=== PATIENT | male | born 1980 | race Caucasian/White ===

== ENCOUNTER 2023-03-11 14:44 | Inpatient (IN) | payer BC ==
--- OUTSIDE RECORDS SUMMARY | 2023-03-11 14:47 | XMS REPORT | Continuity of Care Document ---
:1980 [facility] t Address [address] [place] [address] [address] [place] [address] Care Team Providers Name Role Phone Unavailable Unavailable Unavailable Payers Payer Name Policy Type Policy Number Effective Date Expiration Date S ource Problems Condition Condition Condition Status Onset Resolution Last Treating Co mments Source Name Details Category Date Date Treatment Clinician Date Other Other Problem Active Common chronic chronic Spirit pain pain - [facility] Low back Low back Problem Active Commo n pain pain [facility] Erectile Erectile Problem Active Commo n dysfunctio dysfunctio Sp lula n, n, - [facility] erectile d erectile Asya kes dysfunctio dysfunctio Me dical n type n type Center Fatigue, Fatigue, Problem Active Commo n unspecifie unspecifie Sp lula d type d type - [facility] Alcohol Alcohol Problem Active Common abuse abuse Spirit - [facility] Cigarette Cigarette Problem Active Com mon nicotine nicotine [facility] dependence dependence - [facility] without without St complicati complicati [facility] Allergies, Adverse Reactions, Alerts This patient has no known allergies or adverse reactions. Medications Ordered Filled Start Stop Current Ordering Indication Dosage Frequency Signature Comments Components Source Medication Medication Date Date Medication? Clinician (SIG) Name Name Etodolac Etodolac 2019- No Kleber 1 capsule Common 03-06 [place] with food Spirit 00:00: 00:00 - [facility] 00 :00 [facility] Methocarbam Methocarbam 2018- 2019- No Kleber 1 tablet Common ol ol -04-05 [place] [facility] 00:00: 00:00 - [facility] 00 :00 [facility] Procedures This patient has no known procedures. Encounters Start End Encounter Admission Attending Care Care Encounter Source Date/Time Date/Time Type Type Clinicians Facility Department ID 2019-08-29 2019-08-29 Outpatient Goranevelyn Julissat [id number] Common 10:20:00 10:20:00 [facility] [address] [facility] 2019-08-28 2019-08-28 Outpatient Julissa [place] [id number] Common 09:40:00 09:40:00 [facility] Spir it [facility] 2019-03-31 2019-03-31 Outpatient Julissa [place] [id number] Common 15:00:00 15:00:00 [facility] Results Test Description Test Time Test Comments Results Result [facility] e Comments - MRI L-SPINE W/O 2019-04-13 Patient Name: CONT 10:22:00 HOLLY RG Unit No: [id number] EXAMS: CPT CODE: [id number] MRI L-SPINE W/O CONT 51047 DIAGNOSIS: 1. At L1-2 there is no evidence for disc bulge or herniation, bony canal or foraminal stenosis. 2. At L2-3 there is no evidence for disc bulge or herniation, bony canal or foraminal stenosis. 3. At L3-4 there is 5 mm of extruded left posterior lateral and foraminal disc herniation compressing the thecal sac and the left L4 nerve root. Mild narrowing of the central canal is seen with facet and ligamentum flavum hypertrophic and degenerative change. Moderate left foraminal narrowing is present with mild right-sided stenosis. 4. At L4-5 there is no evidence for disc bulge or herniation. Moderate bilateral foraminal narrowing is present and there is mild narrowing of the central canal with facet and ligamentum flavum hypertrophic and degenerative change. 5. At L5-S1 there is a mild retrolisthesis and associated disc bulging with mild foraminal narrowing. No canal stenosis is seen. COMMENT: COMPARISON: No prior exams available. Scans were performed in the sagittal and axial planes utilizing T1, T2 and inversion recovery images. Signal intensities in the lumbar vertebra are within normal limits. There is mild desiccation of the disks from L3 to S1. Disc configurations are as described. Spondylitic changes are as noted. The conus is in the expected location. The description these findings assumes a normal count of 5 lumbar type vertebra. at 1022 Reported and signed by: Adriano Galloway MD CC: Renetta Schultz M.D. Technologist: SRIDHAR RUIZ RT(R) Transcribed D/ (1022) Asif.SAAD [facility] NAME: HOLLY RG [address] [facility] PHYS: John Jennings MD : 1980 AGE: 39 SEX: M [place] [address] LOC: Y.MRI PHONE #: [phone] EXAM DATE: 04/11/2019 STATUS: DEP CLI FAX #: [phone] RAD #: D/C DT PAGE 1 Signed Report Patient Name: HOLLY RG Unit No: [id number] EXAMS: CPT CODE: [id number] MRI L-SPINE W/O CONT 50722 (Continued) Orig Print D/T: S: 04/13/2019 (1025) [facility] NAME: HOLLY RG [address] [facility] PHYS: John Jennings MD : 1980 AGE: 39 SEX: M [place] [address] LOC: Y.MRI PHONE #: [phone] EXAM DATE: 04/11/2019 STATUS: DEP CLI FAX #: [phone] RAD #: D/C DT PAGE 2 Signed Report
--- NOTE | 2023-03-11 14:52 | P.HP ---
Certification for Inpatient Patient admitted to: Inpatient With expected LOS: >2 Midnights Practitioner: I am a practitioner with admitting privileges, knowledge of patient current condition, hospital course, and medical plan of care. Services: Services provided to patient in accordance with Admission requirements found in Title 42 Section 412.3 of the Code of Federal Regulations Patient History Date of Service: 03/11/23 Reason for admission: microperforation, acute sigmoid diverticulitis History of Present Illness: 42yo M, no PMH direct admission from [place] [facility] due to contained microperforation secondary to acute sigmoid diverticulitis. Patient was in usual state of health up until day before admission @2am, began having LLQ abdominal pain. Pain did not radiate. Nothing in particular alleviated the pain. Worsened with movement. Pain persisted and he began feeling chills, so presented to [place] [facility]. Denies nausea/vomiting, no diarrhea, no rash, no urinary complaints, no SOB, no chest pain. Never had this before. No medications, no sick contacts. Reportedly had leukocytosis of 16k at [place], lactate <2, vitals stable. Currently, patient reports 4-6/10 pain in LLQ, no nausea. Allergies No Known Allergies Allergy (Unverified 03/11/23 15:21) Home Medications: NK [No Home Meds] 03/11/23 - Past Medical/Surgical History Diabetic: No Past Medical History: Patient denies medical history Past Surgical History: Patient denies surgical history Psychosocial/ Personal History: works, , kids - Family History Family History: Reviewed- Non-Contributory (denies any family history at this time) - Social History Smoking Status: Current every day smoker (vapes) Alcohol use: Yes Place of Residence: Home Review of Systems 10-point ROS is otherwise unremarkable Physical Examination - Physical Exam General: Alert, Mild distress (uncomfortable appearing) HEENT: EOMI, Sclerae nonicteric Neck: Supple, No LAD Respiratory: Clear to auscultation bilaterally, Normal air movement Cardiovascular: No edema, Regular rate/rhythm, No murmurs Gastrointestinal: Soft and benign, Tenderness (moderate-severe in LLQ, no rigidity) Musculoskeletal: No contractures, No tenderness Integumentary: No rashes, No significant lesion Neurological: Normal speech, Normal affect Assessment and Plan - Advance Directives Does patient have a Living Will: No Does patient have a Durable POA for Healthcare: No Physician Review Additional Text: Problem List Acute sigmoid diverticulitis with contained microperforation Nicotine dependence sepsis without severe sepsis/shock on presentation to [place] - leukocytosis, tachycardia CT: microperf, sigmoid diverticulitis NPO, IVF possibly advance tomorrow cipro/flagyl given at [place], continue here pain medication antiemetics Dr. Boss consulted patient will need colonoscopy in 6-8 weeks serial abdominal exams counselled on smoking cessation, risk of impaired healing nicotine patch ordered VTE: SCDs Code: full Dispo: home, ~2-3 days Time Spent Managing Pts Care (In Minutes): 75
[2023-03-11 15:26] VITALS: BMI 19.8
[2023-03-11] MEDS ORDERED: MORPHINE 2 MG/ML SYR IV PRN (16:10)
[2023-03-11] MEDS ORDERED: ONDANSETRON 4 MG/2 ML VIAL IV PRN (16:10)
[2023-03-11] MEDS: METRONIDAZOLE 500mg IVPB 500 MG/100 ML BAG IV SCH (16:22)
[2023-03-11] MEDS: D5.45NS W/KCL 20MEQ 1,000 ML IV SCH (16:44)
[2023-03-11] MEDS: NICOTINE 14 MG/PAT TD SCH (16:44)
[2023-03-11] MEDS ORDERED: CIPROFLOXACIN 400mg IV 400 MG/200 ML BAG IV SCH (17:00)
[2023-03-11] MEDS: CIPROFLOXACIN 400mg IV 400 MG/200 ML BAG IV SCH (20:01)
[2023-03-12] MEDS: METRONIDAZOLE 500mg IVPB 500 MG/100 ML BAG IV SCH ×3 (00:18→16:25)
[2023-03-12] MEDS: D5.45NS W/KCL 20MEQ 1,000 ML IV SCH ×4 (00:18→23:00)
[2023-03-12] MEDS ORDERED: ACETAMINOPHEN 325 MG TABLET PO ONE (05:19)
[2023-03-12 06:07] LABS: Absolute Lymphocytes (CBC) 1.6 K/uL (0.7-4.9); Hematocrit 37.1 % (39.6-49.0); Lymphocytes % 11.9 % (15.3-44.8); MCV 92.5 fL (80-100); MPV 7.7 fL (7.6-11.3); RBC Red Blood Cell Count 4.01 M/uL (4.33-5.43)
[2023-03-12 06:22] LABS: Albumin 3.2 g/dL (3.4-5.0); Bilirubin Total 0.9 mg/dL (0.2-1.0); Magnesium 2.2 mg/dL (1.6-2.4); Potassium 3.8 mEq/L (3.5-5.1); Protein, Total 6.6 g/dL (6.4-8.2)
--- NOTE | 2023-03-12 06:56 | P.PN ---
Date of Service: 03/12/23 Subjective: feeling much better today no nausea/vomiting; no abdominal pain at this time no new / worsening problems afebrile ROS: 10 point ROS as noted above, otherwise negative Physical Exam: GEN: Alert, oriented, NAD HEENT: Normal conjunctiva, sclera anicteric CV: Regular rate and rhythm, no edema Pulm: Nonlabored respirations on room air ABD: Soft, mild tenderness in LLQ, no rigidity MSK: No joint tenderness Neuro: Normal speech, normal affect vitals reviewed Problem List: Acute sigmoid diverticulitis with contained microperforation Nicotine dependence Acute sigmoid diverticulitis with contained microperforation sepsis without severe sepsis/shock on presentation to [place] - leukocytosis, tachycardia CT: microperf, sigmoid diverticulitis IVF advanced to clear liquids 03/12 advance as tolerated cipro/flagyl given at [place], continue here pain medication antiemetics Dr. Boss consulted patient will need colonoscopy in 6-8 weeks serial abdominal exams Nicotine dependence counselled on smoking cessation, risk of impaired healing nicotine patch ordered VTE: SCDs Code: full Dispo: home, ~1-2 days
[2023-03-12] MEDS: NICOTINE 14 MG/PAT TD SCH (07:58)
[2023-03-12] MEDS: CIPROFLOXACIN 400mg IV 400 MG/200 ML BAG IV SCH ×2 (09:13→20:44)
[2023-03-12] MEDS ORDERED: ACETAMINOPHEN 500 MG TAB PO PRN (11:56)
--- NOTE | 2023-03-12 14:04 | P.CNS ---
Date of Consult: 03/12/23 PC: I was asked to see this 42-year-old male in regards to his lower abdominal pain. HPC: Patient presented to the emergency room with severe left lower quadrant abdominal pain for diagnosis and treatment. On work-up was found to have acute diverticulitis. PSHx: Negative PMHx: Negative Social Hx: No known allergies Sys R: No cough, wheeze, shortness of breath. No chest pain or palpitations. Has not had any alteration in diet or weight. Has not had any rectal bleeding or trouble with bowel movements. This is his first episode apparently. O/E: Awake alert vital signs are stable HEENT: Negative Chest: Chest movement equal bilaterally Abd: Minimal lower abdominal discomfort [facility]: Intact Data: CT shows diverticulitis with small bowel Perforation, no evidence of gross contamination Impression: Diverticulitis with microperforation Plan: The patient has been on antibiotics, is responding well. His pain is mini mal today. He is on a full liquid diet. Recommend another 24 hours of antibiotics, and if pain remains at the same level, may be discharged and followed as outpatient. Once again we emphasized to him he does need a colonoscopy within the next 4 to 6 weeks. On discharge he is welcome to follow- up in my office should he have any questions or problems, but otherwise may follow-up with his own private physician.
[2023-03-13] MEDS: METRONIDAZOLE 500mg IVPB 500 MG/100 ML BAG IV SCH ×3 (00:44→16:34)
[2023-03-13 01:50] VITALS: O2SAT 96
[2023-03-13] MEDS: NICOTINE 14 MG/PAT TD SCH (07:59)
[2023-03-13] MEDS: CIPROFLOXACIN 400mg IV 400 MG/200 ML BAG IV SCH (09:05)
[2023-03-13] MEDS: D5.45NS W/KCL 20MEQ 1,000 ML IV SCH (10:32)
[2023-03-13 17:26] VITALS: BP 95/51; TEMP 98.2
== END 2023-03-13 18:00 | disposition home or self-care (01) | DRG 872 ==
LOC: 4TH 14:44
PROVIDERS: ADMIT Hospitalist; ATTEND Hospitalist
DX: A41.9 Sepsis, unspecified organism (principal); K57.20 Diverticulitis of large intestine with perforation and abscess without bleeding; F17.290 Nicotine dependence, other tobacco product, uncomplicated; Z71.6 Tobacco abuse counseling
CPT/HCPCS: 36415; 80053; 83735; 85025; 94760; J0744; J2405

== ENCOUNTER 2023-04-02 09:28 | Emergency (ER) | payer BC ==
--- OUTSIDE RECORDS SUMMARY | 2023-04-02 09:32 | XMS REPORT | Continuity of Care Document ---
:1980 Author Organization [facility] t Address [address] [place] [address]. [address] [place] [address] Care Team Providers Name Role Phone Unavailable Unavailable Unavailable Payers Payer Name Policy Type Policy Number Effective Date Expiration Date S ource Problems Condition Condition Condition Status Onset Resolution Last Treating Co mments Source Name Details Category Date Date Treatment Clinician Date Other Other Problem Active Common chronic chronic Spirit pain pain - [facility] Low back Low back Problem Active Commo n pain pain [facility] Erectile Erectile Problem Active Commo n dysfunctio dysfunctio Sp lula n, n, - [facility] erectile d erectile Asya kes dysfunctio dysfunctio Me dical n type n type Center Fatigue, Fatigue, Problem Active Commo n unspecifie unspecifie Sp lula d type d type - [facility] Alcohol Alcohol Problem Active Common abuse abuse Spirit - [facility] Cigarette Cigarette Problem Active Com mon nicotine [...] Spirit 00:00: 00:00 - [facility] 00 :00 [facility] Methocarbam Methocarbam 2018- 2019- No Kleber 1 tablet Common ol ol 03-06 [place] [facility] 00:00: 00:00 - [facility] 00 :00 [facility] Procedures This patient has no known procedures. Encounters Start End Encounter Admission Attending Care Care Encounter Source Date/Time Date/Time Type Type Clinicians Facility Department ID 2019-08-29 2019-08-29 Outpatient Julissa [place] [id number] Common 10:20:00 10:20:00 [facility] 2019-08-28 2019-08-28 Outpatient [facility] [id number] Common 09:40:00 09:40:00 [facility] 2019-03-31 2019-03-31 Outpatient Julissa [place] [id number] Common 15:00:00 15:00:00 [facility] Results Test Description Test Time Test Comments Results Result [facility] e Comments - MRI L-SPINE W/O 2019-04-13 Patient Name: CONT 10:22:00 HOLLY RG Unit No: [id number] EXAMS: CPT CODE: [id number] MRI L-SPINE W/O CONT 81800 DIAGNOSIS: 1. At L1-2 there is no [...] Technologist: SRIDHAR RUIZ RT(R) Transcribed D/ (1022) [facility] NAME: HOLLY RG [address] [facility] PHYS: John Jennings MD : 1980 AGE: 39 SEX: M [place] [address] LOC: Y.MRI PHONE #: [phone] EXAM DATE: 04/11/2019 STATUS: DEP CLI FAX #: [phone] RAD #: D/C DT PAGE 1 Signed Report Patient Name: HOLLY RG Unit No: [id number] EXAMS: CPT CODE: [id number] MRI L-SPINE W/O CONT 37660 (Continued) Orig Print D/T: S: 04/13/2019 (1025) [facility] NAME: HOLLY RG [address] [facility] PHYS: John Jennings MD : 1980 AGE: 39 SEX: M [place] [address] LOC: Y.MRI PHONE #: [phone] EXAM DATE: 04/11/2019 STATUS: DEP CLI FAX #: [phone] RAD #: D/C DT PAGE 2 Signed Report
[2023-04-02] MEDS ORDERED: MORPHINE 4 MG/ML SYR ONE (11:42)
[2023-04-02] MEDS ORDERED: ONDANSETRON 4 MG/2 ML VIAL ONE (11:42)
[2023-04-02 11:50] LABS: Absolute Lymphocytes (CBC) 2.4 K/uL (0.7-4.9); Hematocrit 43.8 % (39.6-49.0); MCV 90.9 fL (80-100); MPV 7.9 fL (7.6-11.3); RBC Red Blood Cell Count 4.82 M/uL (4.33-5.43)
--- NOTE | 2023-04-02 12:04 | RAD REPORT ---
EXAM DESCRIPTION: CTAbdomen Pelvis W Contrast - 04/02/2023 11:49 am CLINICAL HISTORY: Abdominal pain. lower abdominal pain, recent diverticulitis COMPARISON: No comparisons TECHNIQUE: Biphasic CT imaging of the abdomen and pelvis was performed with 100 ml non-ionic IV cont rast. All CT scans are performed using dose optimization technique as appropriate and may include automated exposure control or mA/KV adjustment according to patient size. FINDINGS: The lung bases are clear. The liver, spleen, pancreas, adrenal glands and kidneys are within normal limits. Inflammatory lesion in the left lower quadrant is seen predominately soft tissue attenuation with int ernal fat attenuation noted. This measures approximately 23 mm (image 59/97). This appears adjacent t o the sigmoid colon and is suspicious for epiploic appendagitis. Fluid filled small bowel loops in th e lower abdomen noted suggesting ileus. The appendix is normal. No evidence of significant lymphaden opathy. No suspicious bony findings. IMPRESSION: Left lower quadrant inflammatory lesion is noted adjacent to the sigmoid colon. This pro bably represents epiploic appendagitis. Follow-up CT may be considered in several weeks to ensure res olution.
[2023-04-02 12:13] LABS: Albumin 4.3 g/dL (3.4-5.0); Bilirubin Total 1.4 mg/dL (0.2-1.0); Potassium 4.3 mEq/L (3.5-5.1); Protein, Total 8.2 g/dL (6.4-8.2)
[2023-04-02 12:34] LABS: Blood Morphology Comment NOT SEEN (NOT SEEN); Platelet Estimate ADEQ; White Blood Cell Scan OK (OK)
--- NOTE | 2023-04-02 14:25 | EDPHYS ---
Physician Documentation [facility] Name: Gabe Abreu Age: 42 yrs Sex: Male : 1980 Arrival Date: 04/02/2023 Time: 09:28 Bed 13 Private MD: ED Physician Bernardo Kim HPI: 04/02 09:54 This 42 yrs old Male presents to ER via Ambulatory with complaints of Abdominal Pain. jmm 09:54 The patient presents with abdominal pain in the lower abdomen. The symptoms do not jmm radiate. This is a 42 year old male that presents to the ED with complaints of llq abdominal pain beginning 2 days ago. Patient recently had a similar episode when diagnosed with diverticulitis. . Historical: - Allergies: 09:56 No Known Allergies; ap3 - Home Meds: 09:56 None [Active]; ap3 - PMHx: 09:56 Diverticulitis; ap3 - Immunization history:: Client reports having NOT received the Covid vaccine. - Social history:: Smoking status: unknown Patient uses alcohol, on a daily basis. claims drinking about a 6 pack/day. ROS: 09:54 Constitutional: Negative for fever, chills, and weight loss, Cardiovascular: Negative jmm for chest pain, palpitations, and edema, Respiratory: Negative for shortness of breath, cough, wheezing, and pleuritic chest pain. 09:54 Abdomen/GI: Positive for abdominal pain. 09:54 All other systems are negative. Exam: 09:54 Constitutional: This is a well developed, well nourished patient who is awake, alert, jmm and in no acute distress. Head/Face: atraumatic. Eyes: EOMI, no conjunctival erythema appreciated ENT: Moist Mucus Membranes Neck: Trachea midline, Supple Chest/axilla: Normal chest wall appearance and motion. Cardiovascular: Regular rate and rhythm. No edema appreciated Respiratory: Normal respirations, no respiratory distress appreciated 09:54 Back: Normal ROM Skin: General appearance color normal MS/ Extremity: Moves all extremities, no obvious deformities appreciated, no edema noted to the lower extremities Neuro: Awake and alert Psych: Behavior is normal, Mood is normal, Patient is cooperative and pleasant 09:54 Abdomen/GI: Inspection: abdomen appears normal, Palpation: soft, mild abdominal tenderness, in the left lower quadrant. Vital Signs: 09:53 BP 111 / 77; Pulse 108; Resp 17; Temp 98.9; Pulse Ox 99% ; Weight 68.04 kg; Height 5 ap3 ft. 1 in. ; Pain 5/10; 11:39 BP 121 / 82; Pulse 101; Resp 18; Pulse Ox 99% on R/A; Pain 8/10; ld1 12:45 BP 113 / 80; Pulse 80; Resp 17 S; Pulse Ox 100% on R/A; kc6 14:06 BP 106 / 73; Pulse 77; Resp 18; Pulse Ox 99% ; ld1 09:53 Body Mass Index 28.34 (68.04 kg, 154.94 cm) ap3 09:53 Pain Scale: Adult ap3 11:39 Pain Scale: Adult ld1 MDM: 09:54 Patient medically screened. [facility] 15:37 Differential diagnosis: Colitis, diverticulitis, ureterolithiasis. Data reviewed: vital [facility] signs, nurses notes. Consideration of Admission/Observation. Management of patient was discussed with the following: Cardiographer: Dr. Boss. I considered the following discharge prescriptions or medication management in the emergency department Medications were administered in the Emergency Department. See MAR. Counseling: I had a detailed discussion with the patient and/or guardian regarding: the historical points, exam findings, and any diagnostic results supporting the discharge/admit diagnosis, lab results, radiology results, the need for outpatient follow up, to return to the emergency department if symptoms worsen or persist or if there are any questions or concerns that arise at home. Refusal of service: The patient/guardian displays adequate decision making capability and despite a detailed discussion of alternatives, benefits, risks, and consequences refuses: Admission to the hospital for further work-up and treatment. ED course: I discussed the patient with Dr. Boss whom recommended outpatient follow-up after the patient declined admission. Patient otherwise given strict return precautions. Patient understood agrees plan of care. 04/02 09:57 Order name: CBC with Diff; Complete Time: 12:35 [facility] 04/02 09:57 Order name: CMP; Complete Time: 12:14 [facility] 04/02 09:57 Order name: Lipase; Complete Time: 12:14 [facility] 04/02 11:58 Order name: CBC Smear Scan; Complete Time: 12:35 [facility] 04/02 09:57 Order name: CT Abd/Pelvis - IV Contrast Only; Complete Time: 12:05 [facility] 04/02 09:57 Order name: IV Saline Lock; Complete Time: 11:39 [facility] 04/02 09:57 Order name: Labs collected and sent; Complete Time: 11:39 [facility] Administered Medications: 11:39 Drug: morphine IVP or IV 4 mg Route: IVP; Infused Over: 4 mins; Site: right antecubital;ld1 11:39 Drug: Ondansetron IVP 4 mg Route: IVP; Site: right antecubital; ld1 Disposition Summary: 04/02/23 14:24 Discharge Ordered Location: Home [facility] Condition: Stable [facility] Diagnosis - Epiploic appendagitis [facility] Followup: [facility] - With: Kendell Boss MD - When: 2 - 3 days - Reason: Recheck today's complaints, Continuance of care, Re-evaluation by your physician Discharge Instructions: - Discharge Summary Sheet [facility] - Epiploic Appendagitis [facility] Forms: - Medication Reconciliation Form [facility] - Thank You Letter [facility] - Antibiotic Education [facility] - Prescription Opioid Use [facility] Prescriptions: - acetaminophen-codeine 300-30 mg Oral tablet - take 1 tablet by ORAL route 3 times per day As needed; 20 tablet; Refills: 0, [facility] Product Selection Permitted - Pepcid 20 mg Oral Tablet - take 1 tablet by ORAL route every 12 hours for 10 days; 20 tablet; Refills: 0, [facility] Product Selection Permitted - Diclofenac Sodium 75 mg Oral Tablet Sustained Release - take 1 tablet by ORAL route 2 times per day; 30 tablet; Refills: 0, Product [facility] Selection Permitted Signatures: Dispatcher [employer] Tony Neil PA PA jmm Prokisch, Amanda RN RN ap3 Rosa Isela Palafox RN RN ld1
--- NOTE | 2023-04-02 14:25 | ER ---
Nurse's Notes [facility] Name: Gabe Abreu Age: 42 yrs Sex: Male : 1980 Arrival Date: 04/02/2023 Time: 09:28 Bed 13 Private MD: Diagnosis: Epiploic appendagitis Presentation: 04/02 09:53 Chief complaint: Patient states: he was recently admitted for diverticulitis, and is ap3 back today due to return of left lower quadrant pain. patient states his pain returned last night, and that the pain is currently a 5/10 on the pain scale. Coronavirus screen: At this time, the client does not indicate any symptoms associated with coronavirus-19. Ebola Screen: No symptoms or risks identified at this time. Initial Sepsis Screen: Does the patient meet any 2 criteria? No. Patient's initial sepsis screen is negative. Does the patient have a suspected source of infection? Yes: Acute abdominal pain. Risk Assessment: Do you want to hurt yourself or someone else? Patient reports no desire to harm self or others. Onset of symptoms was April 01, 2023. 09:53 Method Of Arrival: Ambulatory ap3 09:53 Acuity: CANDICE 3 ap3 Triage Assessment: 09:55 General: Appears in no apparent distress. Behavior is calm, cooperative, appropriate ap3 for age. Pain: Complains of pain in left lower quadrant Pain currently is 5 out of 10 on a pain scale. Pain began 1 day ago. Neuro: Level of Consciousness is awake, alert, obeys commands, Oriented to person, place, time, situation. Cardiovascular: Patient's skin is warm and dry. Respiratory: Airway is patent Respiratory effort is even, unlabored, Respiratory pattern is regular, symmetrical. GI: Reports lower abdominal pain. Historical: - Allergies: 09:56 No Known Allergies; ap3 - Home Meds: 09:56 None [Active]; ap3 - PMHx: 09:56 Diverticulitis; ap3 - Immunization history:: Client reports having NOT received the Covid vaccine. - Social history:: Smoking status: unknown Patient uses alcohol, on a daily basis. claims drinking about a 6 pack/day. Screenin:56 [facility] ED Fall Risk Assessment (Adult) History of falling in the last 3 months, ap3 including since admission No falls in past 3 months (0 pts). Abuse screen: Denies threats or abuse. Nutritional screening: No deficits noted. Tuberculosis screening: No symptoms or risk factors identified. Assessment: 11:39 General: Appears in no apparent distress. comfortable, Behavior is calm, cooperative, ld1 appropriate for age. Pain: Complains of pain in abdomen and left lower quadrant Pain does not radiate. Pain currently is 8 out of 10 on a pain scale. Quality of pain is described as sharp, shooting, throbbing, Pain began 4 hours ago. Neuro: Level of Consciousness is awake, alert, obeys commands, Oriented to person, place, time, situation. Cardiovascular: Capillary refill < 3 seconds Patient's skin is warm and dry. Respiratory: Airway is patent Respiratory effort is even, unlabored. GI: Abdomen is flat, non-distended, Bowel sounds present X 4 quads. Abd is soft Abdomen is tender to palpation X 4 quads. : No signs and/or symptoms were reported regarding the genitourinary system. EENT: No signs and/or symptoms were reported regarding the EENT system. Derm: No signs and/or symptoms reported regarding the dermatologic system. Musculoskeletal: No signs and/or symptoms reported regarding the musculoskeletal system. Vital Signs: 09:53 BP 111 / 77; Pulse 108; Resp 17; Temp 98.9; Pulse Ox 99% ; Weight 68.04 kg; Height 5 ap3 ft. 1 in. ; Pain 5/10; 11:39 BP 121 / 82; Pulse 101; Resp 18; Pulse Ox 99% on R/A; Pain 8/10; ld1 12:45 BP 113 / 80; Pulse 80; Resp 17 S; Pulse Ox 100% on R/A; kc6 14:06 BP 106 / 73; Pulse 77; Resp 18; Pulse Ox 99% ; ld1 09:53 Body Mass Index 28.34 (68.04 kg, 154.94 cm) ap3 09:53 Pain Scale: Adult ap3 11:39 Pain Scale: Adult ld1 ED Course: 09:30 Patient arrived in ED. am2 09:31 Tony Car PA is PHCP. jmm 09:31 Bernardo Kim MD is Attending Physician. jmm 09:55 Triage completed. ap3 09:56 Arm band placed on right wrist. ap3 11:23 Rosa Isela Palafox, RN is Primary Nurse. ld1 11:50 CT Abd/Pelvis - IV Contrast Only In Process Unspecified. EDMS 14:23 Kendell Boss MD is Referral Physician. [facility] 14:36 Patient has correct armband on for positive identification. Placed in gown. Bed in low ld1 position. Call light in reach. Side rails up X2. actuarial manager on. Pulse ox on. NIBP on. Door closed. Noise minimized. Warm blanket given. 14:36 No provider procedures requiring assistance completed. IV discontinued, intact, ld1 bleeding controlled, No redness/swelling at site. Administered Medications: 11:39 Drug: morphine IVP or IV 4 mg Route: IVP; Infused Over: 4 mins; Site: right antecubital;ld1 11:39 Drug: Ondansetron IVP 4 mg Route: IVP; Site: right antecubital; ld1 Medication: 09:57 VIS not applicable for this client. ap3 Outcome: 14:24 Discharge ordered by MD. [facility] 14:36 Discharged to home ambulatory. ld1 14:36 Condition: stable 14:36 Discharge instructions given to patient, Instructed on discharge instructions, follow up and referral plans. medication usage, Demonstrated understanding of instructions, follow-up care, medications, Prescriptions given X 3. 14:36 Patient left the ED. ld1 Signatures: Dispatcher [employer] EDMS Tony Car PA PA Gricelda Carrillo am2 Gricelda Villanueva RN RN ap3 Rosa Isela Palafox RN RN ld1 Bonita Conley RN RN [id number]
[2023-04-02 14:55] VITALS: TEMP 98.9
[2023-04-02 14:59] VITALS: BP 106/73; O2SAT 99
== END 2023-04-02 14:36 | disposition home or self-care (01) ==
LOC: ER 09:28
DX: K63.89 Other specified diseases of intestine (principal)
CPT/HCPCS: 85025; 36415; 83690; 80053; 74177; 96375; 96374; 99285; Q9967; J2405